=== PATIENT | female | born 1950 | race Caucasian/White ===

== ENCOUNTER 2020-07-06 05:48 | Day surgery (SDC) | payer MEDICARE, OTHER ==
--- NOTE | 2020-07-03 11:41 | HP ---
DATE OF SURGERY: 07/06/2020 HISTORY OF PRESENT ILLNESS: The patient presents to the office with complaints of difficulty swallowing. It appears that she had a CVA ten years ago and is on Plavix. Large solids are getting stuck in the upper esophagus. She had an EGD in the past with dilatation. This was around January 2019. She had some esophagitis and slight ulceration with stricture. PAST MEDICAL HISTORY: Coronary artery disease, hypertension, CVA, anxiety. PAST SURGICAL HISTORY: section, hysterectomy. ALLERGIES: CODEINE. MEDICATIONS: Plavix, Lisinopril, Atorvastatin, Alprazolam. FAMILY HISTORY: None reported. SOCIAL HISTORY: Negative. REVIEW OF SYSTEMS: CONSTITUTIONAL: Denies fever or chills. CHEST: Denies shortness of breath. CVS: Denies chest pain. ABDOMEN: Denies abdominal pain, nausea, vomiting, diarrhea, constipation or rectal bleeding. : Denies dysuria or hematuria. PHYSICAL EXAMINATION: GENERAL: No acute distress. CHEST: Nonlabored. No shortness of breath. CVS: Regular rate and rhythm. ABDOMEN: Soft, nontender to palpation. EXTREMITIES: No edema. NEUROLOGIC: Alert. PSYCHIATRIC: Appropriate. IMPRESSION: Dysphagia. PLAN: EGD with possible dilatation. As dictated by Francheska Brown NP.
[2020-07-06] MEDS ORDERED: Lactated Ringers 1,000 ML IV SCH (07:00)
[2020-07-06] MEDS ORDERED: Zofran 4 MG/2 ML VIAL ONE (08:33)
--- NOTE | 2020-07-06 09:13 | OP ---
SURGERY DATE/TIME: 07/06/2020 0836 PREOPERATIVE DIAGNOSIS: Epigastric pain. POSTOPERATIVE DIAGNOSES: 1) Grade III gastroesophageal reflux disease with fungal superinfection. 2) A 1 inch hiatal hernia. 3) A superficial prepyloric ulcer. 4) Three superficial duodenal ulcers. PROCEDURES: 1) EGD with biopsy of antrum for EHSAN-test. 2) Cold biopsy of gastroesophageal junction x2. SURGEON: Bassem Pack M.D. ANESTHESIA: MAC. COMPLICATIONS: None. CONDITION: Stable. INDICATION: A patient with upper abdominal discomfort, dysphagia. DESCRIPTION OF PROCEDURE: Taken to endoscopy. Left lateral decubitus position. Scope readily introduced. Pharyngoesophageal junction normal. Esophagus normal. Down to the distal esophagus, one inch had three fairly large streaks coming up from the gastroesophageal junction and a rim of esophagitis at the gastroesophageal junction. It was probably about a size 44. There was not felt to be any dilatation necessary at this time as it is acutely inflamed. Fundus, body normal. Antrum prepyloric ulcer. Duodenum three superficial ulcers. Scope withdrawn back in the antrum. [employer] cold biopsies. Scope looped upon itself. A 1 inch hiatal hernia. Scope withdrawn. Grade III esophagitis. [employer] App[employer]ice biopsy. The patient tolerated the procedure satisfactorily and was placed on medications of Carafate, Protonix and Nystatin. Scheduled to come back to the office for follow up care.
[2020-07-06 09:45] VITALS: O2SAT 99
[2020-07-06 09:51] VITALS: BP 135/65; PULSE 74
== END 2020-07-06 10:04 | disposition home or self-care (01) ==
LOC: SDC 05:48
PROVIDERS: ATTEND Surgery
DX: K21.9 Gastro-esophageal reflux disease without esophagitis (principal); K25.9 Gastric ulcer, unspecified as acute or chronic, without hemorrhage or perforation; K26.9 Duodenal ulcer, unspecified as acute or chronic, without hemorrhage or perforation; K44.9 Diaphragmatic hernia without obstruction or gangrene; R13.10 Dysphagia, unspecified; I10 Essential (primary) hypertension; Z86.73 Personal history of transient ischemic attack (TIA), and cerebral infarction without residual deficits; Z79.01 Long term (current) use of anticoagulants; Z79.899 Other long term (current) drug therapy; Z86.79 Personal history of other diseases of the circulatory system
CPT/HCPCS: 87081; 88305; 99100; J2405

== ENCOUNTER 2021-06-14 05:57 | Day surgery (SDC) | payer MEDICARE, OTHER ==
--- NOTE | 2021-06-07 09:51 | HP ---
DATE OF SURGERY: 06/14/2021 HISTORY OF PRESENT ILLNESS: The patient is a 71 year-old female who presented for follow up of duodenal ulcers that she had back in 2019. The patient is reporting that about a week ago food started getting hung up in her throat especially bread and meat. She is on Pepcid only right now for the GI symptoms. She denies any lower GI symptoms at this time. The patient states she has a history of colon polyps in the past. It has been a year since her last colonoscopy. The patient did refuse a colonoscopy. She was scheduled and called to cancel and was not able to be convinced that she needed this so she stated she is refusing her colonoscopy at this time. PAST MEDICAL HISTORY: Stroke. Hyperlipidemia. Anxiety. PAST SURGICAL HISTORY: Hysterectomy. ALLERGIES: CODEINE. MEDICATIONS: Plavix, Lipitor, Xanax. FAMILY HISTORY: None reported SOCIAL HISTORY: None reported. REVIEW OF SYSTEMS: CONSTITUTIONAL: Denies fever or chills. CHEST: Denies shortness of breath. CVS: Denies chest pain. ABDOMEN: Soft. PHYSICAL EXAMINATION: GENERAL: No acute distress. CHEST: Nonlabored. No shortness of breath. CVS: Regular rate and rhythm. ABDOMEN: Soft. EXTREMITIES: No edema. NEUROLOGIC: Alert. PSYCHIATRIC: Appropriate. IMPRESSION: Follow up for history of duodenal ulcer. PLAN: EGD with Dr. Bassem Pack. As dictated by Francheska Brown NP.
[2021-06-14] MEDS ORDERED: Lactated Ringers 1,000 ML IV SCH (06:30)
[2021-06-14] MEDS ORDERED: Zofran 4 MG/2 ML VIAL ONE (07:57)
[2021-06-14] MEDS ORDERED: DIPRIVAN 200 MG/20 ML IV ONE ×2 (07:57→08:31)
[2021-06-14] MEDS ORDERED: Xylocaine-Mpf 2% 5 Ml Vial ONE (07:57)
[2021-06-14 09:28] VITALS: O2SAT 98
[2021-06-14 09:45] VITALS: BP 126/72; PULSE 73
--- NOTE | 2021-06-14 13:22 | OP ---
SURGERY DATE/TIME: 06/14/2021 0837 PREOPERATIVE DIAGNOSES: 1) Upper abdominal epigastric pain. 2) Dysphagia. 3) Previous history of duodenal ulcer. POSTOPERATIVE DIAGNOSES: 1) A 1.5 inch hiatal hernia. 2) Grade C/D gastroesophageal reflux disease. 3) Very mild antritis. PROCEDURE: EGD with cold biopsy x2. SURGEON: Bassem Pack M.D. ANESTHESIA: MAC. COMPLICATIONS: None. CONDITION: Stable. INDICATION: The patient has marked symptomatology. She does have a history of duodenal ulcer disease. She has not had a recent exam. DESCRIPTION OF PROCEDURE: She is taken to endoscopy. Left lateral decubitus position. Pharyngoesophageal junction cannulated. Esophagus is normal. Down to 36 cm there are two vertical streaks of esophagitis grade C/D. There was a remnant of esophagitis. There was a 1.5 inch hiatal hernia. Otherwise the fundus, body and upper antrum were normal. In the distal antrum there is a little bit of antritis. [employer] biopsy for CLOtest and customer retention representative biopsy for pathology. The pylorus was satisfactory. Duodenal bulb was normal. Second portion was normal. Scope withdrawn looped upon itself. Again, there was 1.5 inch hiatal hernia. Scope withdrawn. The patient tolerated the procedure satisfactorily. Medicines were readjusted. She is to return to the office for follow up.
== END 2021-06-14 09:55 | disposition home or self-care (01) ==
LOC: SDC 05:57
PROVIDERS: ATTEND Surgery
DX: K44.9 Diaphragmatic hernia without obstruction or gangrene (principal); R13.10 Dysphagia, unspecified; K21.9 Gastro-esophageal reflux disease without esophagitis; K29.60 Other gastritis without bleeding; Z87.11 Personal history of peptic ulcer disease
CPT/HCPCS: J2405; J2704